=== PATIENT | male | born 1975 | race Caucasian/White ===

== ENCOUNTER → 2019-01-05 | Outpatient (CLI) | payer MEDICAID | LOC: FIMAGING 12:23 | PROVIDERS: ATTEND Internal Medicine | DX: M51.36 Other intervertebral disc degeneration, lumbar region (principal); M51.37 Other intervertebral disc degeneration, lumbosacral region; M47.897 Other spondylosis, lumbosacral region; B20 Human immunodeficiency virus [HIV] disease; Z79.899 Other long term (current) drug therapy ==

== ENCOUNTER 2019-03-15 11:20 | Emergency (ER) | payer MEDICAID | END 2019-03-15 14:24 | disposition home or self-care (01) ==